=== PATIENT | female | born 1940 | race Caucasian/White ===

== ENCOUNTER 2016-12-29 20:32 | Observation (INO) | payer MEDICARE, OTHER ==
[~2016-12-29 20:32] MED LIST: ISOVUE-370 76%-LOCM 1 ML ONE
[2016-12-29 21:52] LABS: #Eosinphils 0.1 thou/uL (0.0-0.7); #Lymphocytes 1.4 thou/uL (1.20-3.40); #Monocytes 0.9 thou/uL (0.11-0.59); #Neutrophils 9.8 thou/uL (1.40-6.50); %Basophils 0.3 % (0.0-1.0); %Eosinophils 0.8 % (0.0-10.0); %Lymphocytes 11.2 % (21.0-51.0); %Monocytes 7.2 % (0.0-10.0); Hematocrit 44.1 % (36.0-47.0); Mean Platelet Volume 7.6 fL (7.4-10.4); Red Blood Cell (RBC) Count 4.45 mill/uL (4.20-5.40); White Blood Cell (WBC) Count 12.1 thou/uL (4.8-10.8)
[2016-12-29 22:16] LABS: ALT (SGPT) 29 U/L (8-55); AST (SGOT) 17 U/L (5-34); Alkaline Phosphatase 115 U/L (40-150); Anion Gap 15 mmol/L (10-20); BUN (Urea Nitrogen) 20 mg/dL (9.8-20.1); Bilirubin, Total 0.7 mg/dL (0.2-1.2); Calc. Creatinine Clearance 0 mL/min (70-130); Calcium 9.3 mg/dL (7.8-10.44); Carbon Dioxide 18 mmol/L (23-31); Chloride 106 mmol/L (98-107); Estimated GFR-MDRD 75; Globulin 2.6 g/dL (2.4-3.5); Protein, Total 6.5 g/dL (6.0-8.3)
[2016-12-29] MEDS ORDERED: Morphine 4 MG/ML VIAL ONE ×2 (22:39→23:11)
[2016-12-29] MEDS ORDERED: Ondansetron HCl/PF 4 MG/2 ML Vial ONE (22:39)
--- NOTE | 2016-12-29 23:49 | CT ---
CT ABDOMEN AND PELVIS WITH IV CONTRAST: 12/29/16 Multiple axial tomograms obtained through the abdomen and pelvis with IV enhancement. HISTORY: Left lower quadrant pain. Patient had colonoscopy earlier today. Now vomiting. FINDINGS: The lung bases are clear. There is a small sliding diaphragmatic hernia. Liver, spleen, and pancreas appear unremarkable. Adrenal glands normal. There is mild left hydronephr osis and there is mild columning of the left ureter. There is an obstructing calculus measuring appro ximately 4 mm at the left UVJ. Right urinary tract is unremarkable. Bowel loops are unremarkable. There is stool in the right colon. The left colon is contracted. There is a small umbilical hernia. IMPRESSION: 4 mm obstructing calculus at the left UVJ producing mild left hydronephrosis. POS: [facility]
[2016-12-30 01:12] LABS: Bilirubin Negative (Negative); Blood, Urine Large (Negative); Glucose, Urine (Dipstick) Negative (Negative); Ketone, Urine Trace mg/dL (Negative); Nitrite Negative (Negative); Protein, Urine (Dipstick) Negative (Neg-Trace); Urobilinogen 0.2 mg/dL (0.2-1.0)
[2016-12-30 01:14] LABS: Bacteria/HPF None Seen HPF (None Seen); Hyaline Casts/LPF 0-3 HYALINE CAST LPF (0-3 Hyaline); RBC/HPF GREATER THAN 50-TNTC HPF (0-3); Squamous Epithelial 0-3 HPF (0-3); WBC/HPF 0-3 HPF (0-3)
[2016-12-30] MEDS ORDERED: Ondansetron ODT 4 MG TAB SL PRN (01:46)
[2016-12-30] MEDS ORDERED: Ondansetron HCl/PF 4 MG/2 ML Vial IVP PRN ×2 (01:46→02:51)
[2016-12-30] MEDS ORDERED: Morphine PF 1 MG/ML SYR IVP PRN ×2 (01:46→02:54)
[2016-12-30] MEDS ORDERED: Acetaminophen 325 MG TAB PO PRN (01:46)
[2016-12-30] MEDS ORDERED: Sodium Chloride 0.9% 1,000 ML IV SCH ×3 (01:46→17:30)
[2016-12-30 02:12] VITALS: BMI 32.6
[2016-12-30] MEDS ORDERED: Docusate 100 MG CAP PO PRN (02:51)
[2016-12-30] MEDS ORDERED: Ketorolac Tromethamine 30 MG/ML VIAL IVP PRN (02:54)
[2016-12-30] MEDS ORDERED: Tamsulosin HCl 0.4 MG CAP PO SCH ×2 (02:55→09:00)
[2016-12-30] MEDS ORDERED: hydrALAZINE 20 MG/ML VIAL SLOW IVP PRN (02:57)
[2016-12-30] MEDS ORDERED: Ketorolac Tromethamine 30 MG/ML VIAL IVP SCH ×2 (03:00→17:00)
[2016-12-30] MEDS: Sodium Chloride 0.9% 1,000 ML IV SCH ×2 (03:16→09:26)
[2016-12-30] MEDS ORDERED: Ondansetron ODT 8 MG TAB SL PRN (03:17)
[2016-12-30 05:36] LABS: #Eosinphils 0.1 thou/uL (0.0-0.7); #Lymphocytes 1.6 thou/uL (1.20-3.40); #Monocytes 0.9 thou/uL (0.11-0.59); #Neutrophils 9.6 thou/uL (1.40-6.50); %Eosinophils 0.5 % (0.0-10.0); %Lymphocytes 13.5 % (21.0-51.0); %Monocytes 7.3 % (0.0-10.0); Hematocrit 37.7 % (36.0-47.0); Mean Platelet Volume 7.3 fL (7.4-10.4); Red Blood Cell (RBC) Count 3.82 mill/uL (4.20-5.40); White Blood Cell (WBC) Count 12.2 thou/uL (4.8-10.8)
[2016-12-30] MEDS ORDERED: Levothyroxine Sodium 25 MCG TAB PO SCH (06:00)
[2016-12-30] MEDS ORDERED: Levothyroxine Sodium 112 MCG TAB PO SCH (06:00)
[2016-12-30 06:01] LABS: Anion Gap 11 mmol/L (10-20); BUN (Urea Nitrogen) 13 mg/dL (9.8-20.1); Calc. Creatinine Clearance 99 mL/min (70-130); Calcium 8.1 mg/dL (7.8-10.44); Carbon Dioxide 21 mmol/L (23-31); Chloride 109 mmol/L (98-107); Estimated GFR-MDRD Greater than 90
[2016-12-30] MEDS ORDERED: Cetirizine HCl 10 MG TAB PO SCH (09:00)
[2016-12-30] MEDS ORDERED: FLU VACC TS2017-18 (>65YR) 0.5 ML SYRINGE IM ONE (09:00)
[2016-12-30] MEDS ORDERED: Famotidine/PF 20 mg/2ml Vial SLOW IVP SCH (09:00)
[2016-12-30] MEDS ORDERED: Estradiol 1 MG TAB PO SCH ×2 (09:00)
--- NOTE | 2016-12-30 09:59 | RAD ---
KUB: Date: 12-30-16 History: Evaluate contrast excretion. FINDINGS: Supine imaging limits assessment for bowel obstruction and free intraperitoneal air. There is contrast media within the urinary bladder, likely associated with the contrast administratio n for CT examination on 12-29-16. Supine limits assessment for small bowel obstruction and free intra peritoneal air. Bowel gas pattern appears nonobstructed. There is degenerative change involving bilat eral hips, right greater than left. There is diffuse degenerative change involving the spine. IMPRESSION: Contrast media is seen within the urinary bladder. Bowel gas pattern appears nonobstructed. POS: [facility]
[2016-12-30 10:20] LABS: Hemoglobin A1c 5.6 % (4.0-6.0)
[2016-12-30] MEDS ORDERED: Simethicone Chewable 80 MG TAB PO PRN (15:30)
--- NOTE | 2016-12-30 16:58 | HP-2 ---
DATE OF ADMISSION: 12/30/2016 LOCATION: [place], [place] COSIGNER: Dr. Rajni Goel. CODE STATUS: FULL. PRIMARY CARE PHYSICIAN: Dr. Gutiérrez. ATTENDING PHYSICIAN: Dr. Rajni Goel. RESIDENT PHYSICIAN: Dr. Jase Willett. History provided by the patient. CHIEF COMPLAINT: Nausea, vomiting, flank pain, and abdominal pain. HISTORY OF PRESENT ILLNESS: This is a 76-year-old female with past medical history of previous nephr olithiasis, history of colon polyps, status post colonoscopy, this morning presents for acute onset n ausea, vomiting, abdominal pain with radiation to the back, rated the pain as 10/10, without any exac erbating or remitting factors. The patient reports the pain subsided when she arrived to the ER with out use of medication to approximately 7-8/10, but then returned to a max of 10/10 pain. She denies hematuria or dysuria. Denies chest pain or shortness of breath. The patient does complain of chills and sweats; however, denies fever. ER COURSE: The patient was given 1 liter normal saline, 4 mg IV Zofran, and 4 mg IV morphine. PAST MEDICAL HISTORY: Hypothyroid, colon polyps, prior nephrolithiasis. PAST SURGICAL HISTORY: 1. Colonoscopy x3. 2. Hysterectomy. ALLERGIES: DOXYCYCLINE. MEDICATIONS: 1. Levothyroxine. 2. Estradiol. FAMILY HISTORY: Deferred. SOCIAL HISTORY: Patient nonsmoker, nondrinker. Denies drugs. REVIEW OF SYSTEMS: CONSTITUTIONAL: Patient complains of chills and night sweats. Denies fever or f atigue. ENT: Denies nasal congestion, rhinorrhea, or sore throat. Respiratory: Denies cough, sanam estion, shortness of breath. Cardiovascular: Denies chest pain, palpitations, edema. GI: Complain s of nausea, vomiting, abdominal pain. Denies diarrhea, constipation. Genitourinary: Denies dysuri a, polyuria, and hematuria. Complains of CVA tenderness and flank pain. Skin: Denies rashes. Musc uloskeletal: Complains of pain, denies swelling, arthritis, and arthralgias. Neuro: Denies weaknes s, numbness, syncope. PHYSICAL EXAMINATION: VITAL SIGNS: Blood pressure 165/60, pulse 68, respiratory rate 24, T-max 98.1, pulse ox 95% on room air, current weight 76.2 kilograms. GENERAL: Patient alert and oriented, in no acute distress, well-developed, obese, appropriately inte ractive. HEENT: Pupils equal, round, reactive to light and accommodation. Extraocular muscles intact. Conju nctivae within normal limits. NECK: Supple, without lymphadenopathy, no thyromegaly. CARDIOVASCULAR: Regular rate and rhythm. No murmurs, rubs, or gallops. Radial pulses 2+. Pedal pu lse 2+. RESPIRATORY EXAM: Normal effort, no retractions. LUNGS: Clear to auscultation bilaterally. SKIN: Warm and dry. No cyanosis. ABDOMEN: Soft, nontender. Normoactive bowel sounds in all 4 quadrants. No masses, distention or or ganomegaly. EXTREMITIES: No clubbing, cyanosis, or edema. MUSCULOSKELETAL: Structure within normal limits. Tone within normal limits. Positive CVA tendernes s on the left. NEUROLOGIC: No focal deficits. GCS 15. PSYCHIATRIC: Appropriate. LABORATORY RESULTS: White blood cells 12.1, hemoglobin 14.4, hematocrit 44.1, platelets 245. Sodium 135, potassium 3.6, chloride 106, bicarbonate 18, BUN 20, creatinine 0.75, glucose 220, calcium 9.3, AST 17, ALT 29, alkaline phosphatase 115, total bilirubin 0.7, MCV 99.1. UA showed a large amount o f blood in the urine, trace ketones, and too numerous to count RBCs, and the remainder of the UA was benign. IMAGING: CT abdomen and pelvis with contrast showed a 4-mm obstructing calculus at the ureterovesicu lar junction producing mild left hydronephrosis. ASSESSMENT AND PLAN: 1. Obstructive uropathy secondary to nephrolithiasis. The patient was given IV fluids, normal salin e 175 mL per hour. Started on Flomax 0.4 mg per day. Monitor I's and O's, urine strainer is in plac e. We will consider Urology consult in the a.m. No passage of the stone. Repeat a morning basic me tabolic panel. The patient was given Toradol, a one-time 30 mg dose, as well as morphine 2 mg q.4 ho urs as needed. 2. Leukocytosis, likely reactive. We will trend repeat a.m. CBC, urine cultures are pending. 3. Hypothyroid. Continue home medications. 4. Elevated blood pressure, no history of prior diagnosed hypertension, possibly secondary to pain. We will continue to monitor and provide hydralazine p.r.n. for systolic over 180 and diastolic over 110. 5. Prophylaxis. Sequential compression devices and Pepcid. DISPOSITION AND LENGTH OF HOSPITAL STAY: Less than or equal to 2 days. The patient is stable. Symp tomatic medications will be provided. History and physical exam as well as management was discussed with Dr. Rajni Goel who agrees w ith the above history, physical exam, assessment and plan unless otherwise noted in her addendum.
[2016-12-30] MEDS ORDERED: Senokot 8.6 MG TAB PO SCH (17:30)
--- NOTE | 2016-12-30 19:39 | CT ---
CT ABDOMEN AND PELVIS WITH IV CONTRAST: 12/30/16 Multiple axial tomograms obtained through the abdomen and pelvis with IV enhancement. Oral contrast w as also given. HISTORY: Left abdominal pain. Vomiting and diaphoresis. Comparison made to last evening CT scan performed at 10:54 p.m. that exam revealed an obstructing jorge culus within the distal left ureter. FINDINGS: Liver, spleen, pancreas remains unremarkable. There continues to be left hydronephrosis. The calculus in the distal left ureter at the UVJ is uncha nged in size and appearance. Right ureter unremarkable. Small bowel loops are of normal caliber. Colon unremarkable. No significant interval change. IMPRESSION: Obstructing calculus in the distal left ureter is unchanged in position when compared to yesterday's CT scan. POS: [facility]
--- NOTE | 2016-12-30 21:08 | CON ---
DATE OF CONSULTATION: 12/30/2016 REASON FOR CONSULTATION: Ureteral stone with pain on the left. HISTORY OF PRESENT ILLNESS: The patient is a 76-year-old female who was admitted with left-sided renal colic with nausea and vomiting and I was consulted the next day. She had standard pain somewhat of a prior stone episode with chills, but no fever, no gross hematuria noted and no concerns for infection and presented to the ER and was noted to have a distal left ureteral stone, admitted for pain control. She has not had pain since being admitted, but has not noticeably passed a stone, even though they have been looking and straining. Normally, she has frequency q.1 hour and nocturia x1 to 3. She does have urge incontinence, but denies stress incontinence requiring 1 pad a day. We reviewed overactive bladder and ways to help prevent this. PAST MEDICAL HISTORY: One prior stone which she passed on her own, borderline high cholesterol, no blood pressure issues, hypothyroid, no kidney issues from a renal function standpoint. PAST SURGICAL HISTORY: Right knee cartilage surgery. PAST PRECAST MOLDER HISTORY: She had endometriosis and required total abdominal hysterectomy with bilateral salpingo-oophorectomy, but no concerns for cancer. SOCIAL HISTORY: She has never smoked. She drinks alcohol rarely. No other drugs. MEDICATIONS: She lives with her and both she and he are doing some significant dietary changes including multiple vitamins to be healthy. MEDICATIONS: Include Synthroid, estradiol, multivitamins and other vitamin supplements as well as psyllium. ALLERGIES: DOXYCYCLINE gives ulcers in the mouth. REVIEW OF SYSTEMS: She had a colonoscopy just yesterday and was noted to have a 3 cm flat polyp in the right colon for which she needs excision as it was too large to handle endoscopically. Her mammogram is up to date from 2016. Her Pap smear was removed and no longer needed. She denies any chest pain, shortness of breath. She did have some vomiting and bloating consistent with the recent colonoscopy on top of pain with her renal colic. She normally has daily bowel movements which is why she uses the psyllium. She has no concerns for elevated blood sugars. She had a stress test 3 months ago that was within normal limits. We reviewed estradiol and how the pros and cons of that in my opinion are outweighed by her osteopenia as she does not have osteoporosis per her report. I asked her to further discuss this with her primary, also after further discussed her supplemental vitamins including extract calcium because she is already making an emphasis to getting calcium in her diet. I suspect this is a contributing factor for her stone formation, so she discussed the pros and cons of calcium supplementation with respect to both stone disease and osteoporosis further with her primary care doctor. FAMILY HISTORY: Mom at 78 of CHF. Dad at 69 of colon cancer. Her paternal aunt of breast cancer. PHYSICAL EXAMINATION: GENERAL: She is lying comfortably in the bed. VITAL SIGNS: She has been afebrile with 98.5, heart rate 55, blood pressure 124/60, 94% on room air. She is poor, overnight has been voiding otherwise without difficulty. HEENT: No JVD or scleral icterus. CARDIOVASCULAR: Regular rhythm, but bradycardia was noted. No obvious murmurs , gallops or rubs. RESPIRATORY: Lungs clear to auscultation bilaterally. ABDOMEN: Softly distended, mildly tender, but she reported this is only being ticklish. There was definitely no increased tenderness on the left, possibly more so on the right than anything. She had no costovertebral angle tenderness. EXTREMITIES: She had no lower extremity edema. SKIN: Without any concern for pallor or callor. LABORATORY DATA AND IMAGING: Laboratory values reveal stable CBC consistent with hydration. BUN and creatinine of 13 and 0.58 from a prior creatinine of 0.75. Urinalysis revealed 0-3 wbc's, too numerous to count RBCs, no bacteria and 0-[address] (12/29/2016) with contrast was reviewed personally and revealed a left where I would measure up to 7 mm x 5 mm UVJ stone with hydronephrosis and probably a small left mid renal stone as well. CT scan revealed that stone. No other right stones, no hydronephrosis on the right. No masses and a normal bladder. KUB(12/30/2016) was reviewed personally revealed there was no remaining contrast on the right or the left as there was contrast noted in the bladder. ASSESSMENT AND PLAN: We have a 76-year-old female with an obstructing left distal ureteral stone that likely already passed based on her clinical examination and the KUB that shows no further obstruction. We discussed that there is a chance that she still has her stone and it is allowing urine to pass without difficulty, so I would recommend tamsulosin for the next week or so to ensure that if she does have the stone that can increase her chance for spontaneous passage. Otherwise she is to follow up for a stone prevention with a 24 hour urinalysis and reviewed all of this in detail. All questions were answered. SANIYA
[2016-12-30 21:33] VITALS: BP 145/67; TEMP 98.6
--- NOTE | 2016-12-30 21:58 | PDOC.EVN ---
Event Note - Event Note Event Note: Reviewed CT scan results, which showed continued obstructing 4mm stone at UVJ. Discussed with Dr. Hinojosa, who recommended either stent placement verses outpatient treatment, and follow-up on Wednesday. Discussed extensively with patient the two options, with benefits and risks. Answered all patient's questions. Patient opted for outpatient treatment and follow-up on Wednesday, with Dr. Hinojosa. Counselled patient to watch for fevers, pain not improved with medication, or any other concerns, she will need to return to the emergency room for further evaluation. Will d/c patient home as vital signs have been stable, and pain controlled with medication.
--- NOTE | 2016-12-31 00:09 | HP ---
DATE OF SERVICE: 12/30/2016 CHIEF COMPLAINT: Nausea, vomiting and flank pain. HISTORY OF PRESENT ILLNESS: The patient is a 76-year-old female with a past medical history of nephr olithiasis, history of colon polyps and status post colonoscopy on 12/29/2016. The patient presented to the ER with acute onset of nausea, vomiting, abdominal pain that radiated to the back as well as flank pain. The patient was given IV fluids as well as Zofran and morphine in t ER. The patient had a CT scan which showed a 4 mm obstructing calculus at the ureterovesicular ju nction with mild left hydronephrosis. Urology has been consulted. At this morning, the patient was without pain, but notes that she has not yet passed a kidney stone. Urology was ordered. A KUB with contrast and the results of that are pending at this time. The patient's I's and O's are being lynn tored and urine stream that was present so that we can try to catch the stone if it passes. We will follow up with Urology's recommendations and pain medication is in place as needed. I have personall y reviewed and discussed the entire history, physical, assessment and plan with Dr. Willett and agree with his documentation and I repeated pertinent parts of the history and physical by myself. Please see the resident's dictation for full documentation.
[2016-12-31] MEDS ORDERED: Docusate 100 MG CAP PO SCH (09:00)
--- NOTE | 2017-01-03 08:42 | EKG ---
Test Reason : Blood Pressure : / mmHG Vent. Rate : 060 BPM Atrial Rate : 060 BPM P-R Int : 144 ms QRS Dur : 092 ms QT Int : 442 ms P-R-T Axes : 056 038 037 degrees QTc Int : 442 ms Normal sinus rhythm Normal ECG Confirmed by Soy JAIN ([id number]) on 01/03/2017 8:41:44 AM Referred By: SERENE Confirmed By:Soy JAIN
--- NOTE | 2017-01-06 06:04 | DIS-2 ---
DATE OF ADMISSION: 12/30/2016 DATE OF DISCHARGE: 12/30/2016 RESIDENT: Monica Delatorre D.O. ADMITTING ATTENDING: Dr. Rajni Goel DISCHARGE ATTENDING: Dr. Rajni Goel CONSULTATIONS: Urology, Dr. Adilene Hinojosa PROCEDURES/IMAGING: Abdomen and pelvis CT was performed and showed a 4 mm obstructing calculus at th e left UVJ junction producing mild left hydronephrosis and an abdominal x-ray which showed nonspecifi c bowel gas pattern and no obstruction. Abdomen and pelvis CT was performed which showed no other ac [place] findings other than the ones prior. EKG was done which showed normal sinus rhythm. PRIMARY DIAGNOSIS: Obstructive renal calculus. SECONDARY DIAGNOSIS: Hypothyroidism. DISCHARGE MEDICATIONS: 1. Flomax 0.4 mg p.o. daily. 2. Zyrtec 10 mg p.o. daily. 3. Levothyroxine 137 mcg p.o. daily. 4. Estradiol 0.25 mg p.o. daily. DISCONTINUED MEDICATIONS: None. HISTORY OF PRESENT ILLNESS AND HOSPITAL COURSE: The patient is a 76-year-old well female that came t o the ER with acute complaint of nausea, vomiting, abdominal pain that radiates to the back, pain was 10/10. A CT abdomen and pelvis shows an obstructing renal calculus at the UVJ junction. The patien t is placed inpatient, put on IV fluids and Flomax. Urology was consulted and recommended management conservatively, especially since the patient reporting no pain at the time of evaluation from the da y team. Of important note, the patient did have a colonoscopy performed the day prior without compli cation and had a couple of polyps removed. Patient reports little gas and crampy abdominal pain like ly secondary to increased gas in the bowel seen on CT and confirmed with x-ray. The patient did not pass stone, although had improvement of pain, likely due to adequate hydration and Flomax as well as pain medication. The patient desired to go home that evening and Urology agreed that this is an okay decision for her. DISPOSITION: Patient was discharged home in stable condition. DISCHARGE INSTRUCTIONS: 1. Location: Home. 2. Diet: Regular. 3. Activity: As tolerated. 4. Follow up with Dr. Adilene Hinojosa in 1 week and with primary care physician in 1 week. ER precauti ons were given to her return and the patient was called a day later and reported symptoms still not improved from admission, but had not yet seen a stone in passing.
== END 2016-12-30 22:50 | disposition home or self-care (01) ==
LOC: ERS 20:32 → 2SW 12-30 00:15
PROVIDERS: ADMIT Family Medicine; ATTEND Family Medicine
DX: N13.2 Hydronephrosis with renal and ureteral calculous obstruction (principal); E03.9 Hypothyroidism, unspecified; R03.0 Elevated blood-pressure reading, without diagnosis of hypertension; Z88.1 Allergy status to other antibiotic agents; Z79.818 Long term (current) use of other agents affecting estrogen receptors and estrogen levels; Z98.890 Other specified postprocedural states; Z90.710 Acquired absence of both cervix and uterus; Z87.19 Personal history of other diseases of the digestive system
CPT/HCPCS: 74000; 74177 ×2; 80048; 80053; 83036; 85025 ×2; 93005; 96361 ×2; 96374; 96375 ×2; 96376 ×2; 99285; G0378; 36415; 81003; 81015; 93010; A4216; J1885; J2270; J2274; J2405; S0028

== ENCOUNTER 2017-03-15 14:30 | Inpatient (IN) | payer MEDICARE, BC ==
[2017-03-19] MEDS ORDERED: cefOXitin 2 GM, Syringe 1 ML in Sterile Water 10 ML SLOW IVP SCH (07:45)
[2017-03-19] MEDS ORDERED: Fentanyl 100 MCG/2 ML VIAL ONE ×4 (08:04→12:48)
[2017-03-19] MEDS ORDERED: Midazolam HCl 2 mg/2 ml Vial ONE (08:04)
[2017-03-19] MEDS ORDERED: Dexamethasone 4 mg/ml Vial ONE (08:05)
[2017-03-19] MEDS ORDERED: Lidocaine 2% w/Epinephrine 1:200K 20 ML VIAL ONE (08:48)
[2017-03-19] MEDS ORDERED: Bupivacaine 0.25% HCL 30 ML VIAL ONE (08:48)
[2017-03-19] MEDS ORDERED: Ketamine 50 MG/ML VIAL ONE (08:55)
[2017-03-19] MEDS ORDERED: Promethazine HCl 25 MG/ML VIAL SLOW IVP PRN (10:24)
[2017-03-19] MEDS ORDERED: Ondansetron HCl/PF 4 MG/2 ML Vial IVP PRN ×3 (10:24→13:07)
[2017-03-19] MEDS ORDERED: Promethazine HCl 25 MG/ML VIAL IM PRN ×3 (10:24→13:07)
[2017-03-19] MEDS ORDERED: cefOXitin 2 GM VIAL ONE (11:16)
[2017-03-19] MEDS ORDERED: hydrALAZINE 20 MG/ML VIAL SLOW IVP PRN (11:55)
--- NOTE | 2017-03-19 12:31 | OP ---
PREOPERATIVE DIAGNOSIS: Carpet polyp of cecum. SURGEON: Ge Hernandez M.D. PROCEDURE PERFORMED: Laparoscopic right hemicolectomy. INDICATIONS: The patient is a 76-year-old female who had a routine colonoscopy and found a large car pet polyp in the cecum. This was not amenable to resection with the colonoscope. FINDINGS: The right colon was resected. No obvious adenopathy. PROCEDURE IN DETAIL: After informed consent was obtained, the patient was taken to the operating kahlil m and given general endotracheal anesthesia. She was placed in the supine position. The abdomen was prepped and draped in the usual fashion. Local anesthesia infiltrated subcutaneously and deep and a 5 mm incision was performed in the left lateral abdominal wall. A Veress needle inserted. Drop maldonado t performed. Pneumoperitoneum was created to a volume of 2 liters of carbon dioxide utilizing a [employer] 5 mm trocar and 0 degree laparoscope, direct visual entry in the abdominal cavity. Pneumoperit oneum was created to a pressure of 15 mmHg and under direct vision a 5 mm port placed in the left upp er quadrant and a 12 mm port placed in the left lower quadrant. The right colon was mobilized by inc ising the white line of Toldt and the ileum was freed up and the mesentery was then divided with the LigaSure, then the ileum was divided utilizing a linear white load stapler, 60 mm. The ascending col on was divided with the linear 60 mm blue load stapler. The specimen was placed in the left lower qu adrant. Then the small bowel was brought up, it was still tethered down a little bit into the pelvis . This had to be freed up and then I noticed that I had compromised the blood flow to that small bow el somewhat and there was also an injury about 6 cm from the end. So I elected to resect that portio n, so we have a clean, fresh piece of bowel. This was removed again with the stapler. Then the ileu m was brought up and an enterotomy was performed about 7 cm from the end. The antimesenteric border was cauterized then opened with a [place] dissector and then a colotomy was performed again with the cautery and the [place]. The linear 60 mm blue load stapler was used to create the anastomosis. O ne was placed in the small bowel, then brought up and inserted into the colon. It was closed and hel d for 20 seconds then fired. The common enterotomy was closed with a running 2-0 V-Loc suture transv ersally. Hemostasis was assured. The abdomen thoroughly irrigated and irrigation fluid removed. Th en the specimens were removed by enlarging the opening in the left lower quadrant with an Graham woun d protector. These were then removed from the abdomen. Pneumoperitoneum was reinstilled. Hemostasi s assured. The irrigation fluid removed. I had placed a second 12 mm port in the right lower quadra nt to aid with the anastomosis and this was closed with a 2-0 Vicryl on a GraNee needle. Hemostasis assured. Trocars and retractors removed. The fascia closed in gloves and instruments were changed. The fascia closed with a running 0 Maxon then the wound was irrigated and the subcutaneous reapproxi mated with interrupted 3-0 Vicryl and the skin closed with a running subcuticular 4-0 Rapide. Dermab ond applied. The patient tolerated the procedure well and transferred to recovery in good condition. Sponge and needle count verified correct x2.
[2017-03-19] MEDS ORDERED: diphenhydrAMINE 50 MG/ML VIAL IM PRN (13:07)
[2017-03-19] MEDS ORDERED: Fentanyl 5000 MCG/250 ML CADD IVPB PRN (13:07)
[2017-03-19] MEDS ORDERED: Naloxone HCl 0.4 mg/ml Vial IV PRN (13:07)
[2017-03-19] MEDS ORDERED: Zolpidem Tartrate 5 MG TAB PO PRN (13:07)
[2017-03-19] MEDS ORDERED: diphenhydrAMINE 25 MG CAP PO PRN (13:07)
[2017-03-19] MEDS ORDERED: diphenhydrAMINE 50 MG/ML VIAL IVP PRN (13:07)
[2017-03-19] MEDS ORDERED: Communication Order-Pharmacy FS SCH (13:15)
[2017-03-19] MEDS ORDERED: Bupivacaine PF 0.5% 30 ML VIAL ONE (13:57)
[2017-03-19] MEDS ORDERED: Bupivacaine HCl 0.5%/Epinephrine 1:200,000/PF 30 ml Vial ONE (13:57)
[2017-03-19] MEDS ORDERED: cefOXitin 2 GM in Sodium Chloride 0.9% 100 ML IVPB SCH (14:00)
[2017-03-19] MEDS ORDERED: HYDROmorphone 0.5 MG/0.5 ML SYRINGE ONE (14:08)
[2017-03-19] MEDS ORDERED: Propofol 200 MG/20 ML VIAL ONE (14:09)
[2017-03-19] MEDS ORDERED: PHENYLEPHRINE-NS 100 MCG/ML 10 ML SYRINGE ONE (14:09)
[2017-03-19] MEDS ORDERED: Lidocaine 1% PF 5 ML VIAL ONE (14:09)
[2017-03-19] MEDS ORDERED: Glycopyrrolate 0.2 MG/ML 5 ML SYRINGE ONE (14:09)
[2017-03-19] MEDS ORDERED: Ketorolac Tromethamine 30 MG/ML VIAL ONE (14:09)
[2017-03-19] MEDS ORDERED: Ondansetron HCl/PF 4 MG/2 ML Vial ONE (14:09)
[2017-03-19] MEDS ORDERED: Dexamethasone 20 MG/5 ML VIAL ONE (14:09)
[2017-03-19] MEDS ORDERED: fentaNYL Citrate/PF 2,000 MCG in Sodium Chloride 0.9% 60 ML IV PRN (14:30)
[2017-03-19 15:23] VITALS: BMI 29.3
[2017-03-19] MEDS: cefOXitin 2 GM, Syringe 1 ML in Sterile Water 10 ML SLOW IVP SCH ×2 (16:49→21:49)
[2017-03-19] MEDS: Ketorolac Tromethamine 30 MG/ML VIAL IVP SCH ×2 (16:51→18:18)
[2017-03-19] MEDS: Acetaminophen 1,000 MG in Premix Bag 1 BAG IVPB SCH ×2 (16:52→18:22)
[2017-03-19] MEDS: Sodium Chloride 0.9% 1,000 ML IV SCH ×2 (16:54→21:50)
[2017-03-19] MEDS ORDERED: FLU VACC TS2017-18 (>65YR) 0.5 ML SYRINGE IM ONE (17:00)
[2017-03-19] MEDS: Famotidine 20 MG TAB PO SCH (20:11)
[2017-03-19] MEDS: Famotidine/PF 20 mg/2ml Vial SLOW IVP SCH (21:49)
[2017-03-20] MEDS: Ketorolac Tromethamine 30 MG/ML VIAL IVP SCH ×4 (00:47→18:26)
[2017-03-20] MEDS: Acetaminophen 1,000 MG in Premix Bag 1 BAG IVPB SCH ×2 (00:47→06:50)
[2017-03-20 04:47] LABS: #Lymphocytes 0.8 thou/uL (1.20-3.40); #Monocytes 0.6 thou/uL (0.11-0.59); #Neutrophils 10.8 thou/uL (1.40-6.50); %Eosinophils 0.2 % (0.0-10.0); %Lymphocytes 6.4 % (21.0-51.0); %Monocytes 4.5 % (0.0-10.0); %Neutrophils 88.8 % (42.0-75.0); Hemoglobin 12.3 g/dL (12.0-16.0); Mean Corpuscular HGB CONC 33.2 g/dL (32.0-36.0); Mean Corpuscular Hemoglobin 33.3 pg (27.0-31.0); Platelet Count 163 thou/uL (130-400); RBC Distribution Width 12.3 % (11.5-14.5); Red Blood Cell (RBC) Count 3.69 mill/uL (4.20-5.40); White Blood Cell (WBC) Count 12.2 thou/uL (4.8-10.8)
[2017-03-20 04:51] LABS: Anion Gap 11 mmol/L (10-20); BUN (Urea Nitrogen) 13 mg/dL (9.8-20.1); Calc. Creatinine Clearance 86 mL/min (70-130); Calcium 8.4 mg/dL (7.8-10.44); Carbon Dioxide 21 mmol/L (23-31); Chloride 108 mmol/L (98-107); Estimated GFR-MDRD 87; Glucose 145 mg/dL (83-110); Sodium 136 mmol/L (136-145)
[2017-03-20] MEDS: Famotidine/PF 20 mg/2ml Vial SLOW IVP SCH ×2 (09:02→21:24)
[2017-03-20] MEDS: Famotidine 20 MG TAB PO SCH ×2 (09:08→19:54)
[2017-03-20] MEDS: Sodium Chloride 0.9% 1,000 ML IV SCH ×2 (10:32→19:46)
[2017-03-20] MEDS: Enoxaparin Sodium 40 MG/0.4 ML SYRINGE SC SCH (11:40)
[2017-03-20] MEDS ORDERED: Sodium Chloride 0.9% 500 ML IV SCH (18:45)
[2017-03-21] MEDS: Ketorolac Tromethamine 30 MG/ML VIAL IVP SCH ×4 (00:41→19:39)
[2017-03-21] MEDS: Sodium Chloride 0.9% 1,000 ML IV SCH (06:53)
[2017-03-21] MEDS ORDERED: HYDROcodone/Acetaminophen 10/325 mg Tablet PO PRN (10:41)
[2017-03-21] MEDS ORDERED: DC PCA Order Set 1 EACH FS ONE (10:41)
[2017-03-21] MEDS: Famotidine 20 MG TAB PO SCH ×2 (11:01→21:28)
[2017-03-21] MEDS: Famotidine/PF 20 mg/2ml Vial SLOW IVP SCH ×2 (11:02→20:03)
[2017-03-21] MEDS: Enoxaparin Sodium 40 MG/0.4 ML SYRINGE SC SCH (13:31)
[2017-03-21] MEDS: HYDROcodone/Acetaminophen 10/325 mg Tablet PO PRN (21:27)
[2017-03-22] MEDS: Ketorolac Tromethamine 30 MG/ML VIAL IVP SCH ×3 (00:52→06:32)
[2017-03-22] MEDS: HYDROcodone/Acetaminophen 10/325 mg Tablet PO PRN ×2 (02:43→09:08)
[2017-03-22] MEDS: Famotidine 20 MG TAB PO SCH (09:08)
[2017-03-22] MEDS: Enoxaparin Sodium 40 MG/0.4 ML SYRINGE SC SCH (09:09)
[2017-03-22] MEDS: Famotidine/PF 20 mg/2ml Vial SLOW IVP SCH (09:16)
--- NOTE | 2017-03-22 10:40 | DIS ---
DISCHARGE DIAGNOSIS: Carpet polyp of cecum. PROCEDURES DURING ADMISSION: Laparoscopic right hemicolectomy. HOSPITAL COURSE: The patient was admitted. She had undergone a mechanical bowel prep. She was take n to the operating room where she underwent a laparoscopic right hemicolectomy. Postoperatively, she is doing well. Her bowel function returned. She is tolerating diet. She is afebrile, voiding well . She is discharged home in good condition on hydrocodone and Zofran. She will follow up with me in 2 weeks.
[2017-03-22 13:16] VITALS: BP 166/82; TEMP 98.1
== END 2017-03-22 13:20 | disposition home or self-care (01) | DRG 331 ==
LOC: SURG A 03-19 06:51
PROVIDERS: ADMIT Surgery; ATTEND Surgery
PROC: 0DTF4ZZ Resection of Right Large Intestine, Percutaneous Endoscopic Approach (ICD-10-PCS; principal; 2017-03-19)
PROC: 0DB84ZZ Excision of Small Intestine, Percutaneous Endoscopic Approach (ICD-10-PCS; 2017-03-19)
PROC: 3E0T3BZ Introduction of Anesthetic Agent into Peripheral Nerves and Plexi, Percutaneous Approach (ICD-10-PCS; 2017-03-19)
PROC: 3E0T33Z Introduction of Anti-inflammatory into Peripheral Nerves and Plexi, Percutaneous Approach (ICD-10-PCS; 2017-03-19)
DX: D49.0 Neoplasm of unspecified behavior of digestive system (principal); E03.9 Hypothyroidism, unspecified; J45.909 Unspecified asthma, uncomplicated; E78.5 Hyperlipidemia, unspecified; K21.9 Gastro-esophageal reflux disease without esophagitis; G43.909 Migraine, unspecified, not intractable, without status migrainosus
CPT/HCPCS: 36415; 36416; 80048; 80053; 83036; 85025; 88307; 93005; A4216; J0131; J0670; J0694; J1100; J1170; J1650; J1885; J2001; J2250; J2405; J2704; J3010; J7050; S0020; S0028

== ENCOUNTER 2017-03-16 15:20 | Outpatient (CLI) | payer MEDICARE, BC ==
[2017-03-16 15:59] LABS: #Basophils 0.1 thou/uL (0.0-0.2); #Eosinphils 0.2 thou/uL (0.0-0.7); #Lymphocytes 1.8 thou/uL (1.20-3.40); #Monocytes 0.5 thou/uL (0.11-0.59); #Neutrophils 3.4 thou/uL (1.40-6.50); %Eosinophils 3.1 % (0.0-10.0); %Lymphocytes 30.6 % (21.0-51.0); %Monocytes 8.8 % (0.0-10.0); %Neutrophils 56.4 % (42.0-75.0); Hemoglobin 13.7 g/dL (12.0-16.0); Mean Corpuscular Hemoglobin 32.8 pg (27.0-31.0); Mean Corpuscular Volume 99.3 fl (81.0-99.0); Mean Platelet Volume 7.4 fL (7.4-10.4); Platelet Count 226 thou/uL (130-400); RBC Distribution Width 12.4 % (11.5-14.5); Red Blood Cell (RBC) Count 4.17 mill/uL (4.20-5.40)
[2017-03-16 16:05] LABS: Hemoglobin A1c 5.3 % (4.0-6.0)
[2017-03-16 16:25] LABS: ALT (SGPT) 16 U/L (8-55); AST (SGOT) 19 U/L (5-34); Albumin 4.1 g/dL (3.4-4.8); Alkaline Phosphatase 108 U/L (40-150); Anion Gap 11 mmol/L (10-20); BUN (Urea Nitrogen) 18 mg/dL (9.8-20.1); Bilirubin, Total 0.4 mg/dL (0.2-1.2); Calc. Creatinine Clearance 0 mL/min (70-130); Calcium 9.7 mg/dL (7.8-10.44); Carbon Dioxide 27 mmol/L (23-31); Chloride 107 mmol/L (98-107); Estimated GFR-MDRD 74; Globulin 2.2 g/dL (2.4-3.5); Glucose 128 mg/dL (83-110); Potassium 3.9 mmol/L (3.5-5.1); Protein, Total 6.3 g/dL (6.0-8.3); Sodium 141 mmol/L (136-145)
--- NOTE | 2017-03-17 21:22 | EKG ---
Test Reason : Blood Pressure : / mmHG Vent. Rate : 061 BPM Atrial Rate : 061 BPM P-R Int : 150 ms QRS Dur : 080 ms QT Int : 424 ms P-R-T Axes : 046 062 046 degrees QTc Int : 426 ms Normal sinus rhythm Normal ECG When compared with ECG of 30-DEC-2016 07:24, No significant change was found Confirmed by CASSIDY FRANK ([id number]) on 03/17/2017 9:21:38 PM Referred By: NARESH Confirmed By:CASSIDY FRANK
== END 2017-03-16 15:21 | disposition home or self-care (01) ==
LOC: LABBT 15:20
PROVIDERS: ATTEND Surgery
DX: Z01.810 Encounter for preprocedural cardiovascular examination (principal); Z01.812 Encounter for preprocedural laboratory examination; D12.0 Benign neoplasm of cecum
CPT/HCPCS: 80053; 83036; 85025; 93005; 93010

== ENCOUNTER 2017-04-29 16:33 | Outpatient (CLI) | payer MEDICARE, BC | END 2017-04-29 16:34 | disposition home or self-care (01) | LOC: BICRAD 16:33 | PROVIDERS: ATTEND Surgery | DX: R10.9 Unspecified abdominal pain (principal) | CPT/HCPCS: 74018 ==

== ENCOUNTER 2017-05-24 15:32 | Outpatient (CLI) | payer MEDICARE, BC | END 2017-05-24 15:33 | disposition home or self-care (01) | LOC: BICRAD 15:32 | PROVIDERS: ATTEND Family Medicine | DX: M25.511 Pain in right shoulder (principal); M19.011 Primary osteoarthritis, right shoulder ==

== ENCOUNTER 2017-07-06 09:51 | Outpatient (CLI) | payer MEDICARE, BC | END 2017-07-06 09:52 | disposition home or self-care (01) | LOC: BICRAD 09:51 | PROVIDERS: ATTEND Family Medicine | DX: M53.3 Sacrococcygeal disorders, not elsewhere classified (principal); M47.896 Other spondylosis, lumbar region; M16.0 Bilateral primary osteoarthritis of hip | CPT/HCPCS: 72100; 72220 ==

== ENCOUNTER 2017-10-29 13:45 | Outpatient (CLI) | payer MEDICARE, BC | END 2017-10-29 13:46 | disposition home or self-care (01) | LOC: BICMAMMO 13:45 | PROVIDERS: ATTEND Family Medicine | DX: Z12.31 Encounter for screening mammogram for malignant neoplasm of breast (principal); Z80.3 Family history of malignant neoplasm of breast | CPT/HCPCS: 77063; 77067 ==

== ENCOUNTER 2018-02-18 11:12 | Outpatient (CLI) | payer MEDICARE, BC ==
--- NOTE | 2018-02-18 12:46 | RAD ---
ABDOMEN TWO VIEWS: 02/18/2018 PROVIDED CLINICAL HISTORY: Constipation. FINDINGS: The visualized lung bases appear clear. The abdominal bowel gas pattern is nonspecific. Suture mate rial overlies the right mid abdomen, laterally. No radiographically apparent urinary tract calculi. The osseous structures demonstrate no acute findings. IMPRESSION: Nonspecific bowel gas pattern. POS: [facility]
== END 2018-02-18 11:13 | disposition home or self-care (01) ==
LOC: BICRAD 11:12
PROVIDERS: ATTEND Internal Medicine Gastroenterology
DX: K59.00 Constipation, unspecified (principal); R10.30 Lower abdominal pain, unspecified; Z86.010 Personal history of colon polyps; Z83.71 Family history of colonic polyps
CPT/HCPCS: 74019

== ENCOUNTER 2018-06-02 00:18 | Outpatient (CLI) | payer MEDICARE, BC ==
--- NOTE | 2018-06-02 14:02 | RAD ---
EXAM: Chest PA and lateral: HISTORY: Preoperative exam COMPARISON: None FINDINGS: Heart: Normal. Aorta: Atherosclerosis Pulmonary vessels: Normal Costophrenic angles: Costophrenic angles are clear. Lungs: No consolidation or masses. Pneumothorax: No pneumothorax Osseous structures: No osseous abnormalities IMPRESSION: No acute cardiopulmonary process. Atherosclerosis of the aorta.
[2018-06-02 14:24] LABS: #Eosinphils 0.2 thou/uL (0.0-0.7); #Monocytes 0.7 thou/uL (0.11-0.59); #Neutrophils 3.2 thou/uL (1.40-6.50); %Basophils 0.8 % (0.0-1.0); %Eosinophils 2.8 % (0.0-10.0); %Lymphocytes 32.7 % (21.0-51.0); %Neutrophils 52.7 % (42.0-75.0); Hemoglobin 13.7 g/dL (12.0-16.0); Mean Corpuscular HGB CONC 32.5 g/dL (32.0-36.0); Mean Corpuscular Hemoglobin 32.5 pg (27.0-31.0); Mean Corpuscular Volume 99.9 fL (78.0-98.0); Mean Platelet Volume 7.3 fL (7.4-10.4); Platelet Count 258 thou/uL (130-400); RBC Distribution Width 11.9 % (11.5-14.5); Red Blood Cell (RBC) Count 4.22 mill/uL (4.20-5.40)
[2018-06-02 14:32] LABS: INR-International Normal Ratio 1.3
[2018-06-02 14:41] LABS: Anion Gap 14 mmol/L (10-20); BUN (Urea Nitrogen) 20 mg/dL (9.8-20.1); Calc. Creatinine Clearance 0 mL/min (70-130); Calcium 9.6 mg/dL (7.8-10.44); Carbon Dioxide 22 mmol/L (23-31); Chloride 107 mmol/L (98-107); Estimated GFR-MDRD 86; Glucose 77 mg/dL (83-110); Potassium 3.9 mmol/L (3.5-5.1); Sodium 139 mmol/L (136-145)
--- NOTE | 2018-06-03 07:26 | EKG ---
Test Reason : Blood Pressure : / mmHG Vent. Rate : 044 BPM Atrial Rate : 044 BPM P-R Int : 158 ms QRS Dur : 082 ms QT Int : 470 ms P-R-T Axes : 063 055 047 degrees QTc Int : 401 ms Marked sinus bradycardia Anterior infarct , age undetermined Abnormal ECG When compared with ECG of 16-MAR-2017 15:45, No significant change was found Confirmed by CASSIDY FRANK ([id number]) on 06/03/2018 7:26:00 AM Referred By: DERIK Confirmed By:CASSIDY FRANK
== END 2018-06-02 00:19 | disposition home or self-care (01) ==
LOC: LABBT 00:18
PROVIDERS: ATTEND Orthopaedic Surgery
DX: Z01.818 Encounter for other preprocedural examination (principal); M16.11 Unilateral primary osteoarthritis, right hip; I70.0 Atherosclerosis of aorta
CPT/HCPCS: 71046; 80048; 85025; 85610; 87081; 93005; 93010

== ENCOUNTER 2018-06-02 13:30 | Inpatient (IN) | payer MEDICARE, BC ==
[2018-06-14] MEDS ORDERED: Tranexamic Acid 1,000 MG/10 ML VIAL ONE (07:16)
[2018-06-14] MEDS ORDERED: Sodium Chloride 0.9% 100 ML ONE (07:16)
[2018-06-14] MEDS ORDERED: Midazolam HCl 2 mg/2 ml Vial ONE (07:27)
[2018-06-14] MEDS ORDERED: Fentanyl 100 MCG/2 ML VIAL ONE ×3 (07:27→10:55)
[2018-06-14] MEDS ORDERED: Zolpidem Tartrate 5 MG TAB PO PRN ×2 (08:15→08:58)
[2018-06-14] MEDS ORDERED: diphenhydrAMINE 50 MG/ML VIAL IM PRN (08:15)
[2018-06-14] MEDS ORDERED: Promethazine HCl 25 MG/ML VIAL IM PRN ×3 (08:15→10:31)
[2018-06-14] MEDS ORDERED: Naloxone HCl 0.4 mg/ml Vial IV PRN (08:15)
[2018-06-14] MEDS ORDERED: Fentanyl 5 mcg/Bup 0.075% Cadd 100 ML EPIDURAL SCH (08:15)
[2018-06-14] MEDS ORDERED: HYDROcodone/Acetaminophen 5/325 mg Tablet PO PRN ×2 (08:15→09:18)
[2018-06-14] MEDS ORDERED: Naloxone HCl 0.4 mg/ml Vial IVP PRN (08:15)
[2018-06-14] MEDS ORDERED: Ondansetron PF 4 MG/2 ML Vial IVP PRN ×2 (08:15→08:58)
[2018-06-14] MEDS ORDERED: Hydrocerin (Eucerin) Cream 120 gm Jar TOP PRN (08:15)
[2018-06-14] MEDS ORDERED: diphenhydrAMINE 50 MG/ML VIAL IVP PRN (08:15)
[2018-06-14] MEDS ORDERED: Promethazine HCl 25 MG SUPP PR PRN (08:15)
[2018-06-14] MEDS ORDERED: traMADol HCl 50 MG TAB PO PRN ×3 (08:15→09:18)
[2018-06-14] MEDS ORDERED: Bupivacaine 0.25% 10 ML VIAL EPIDURAL PRN (08:15)
[2018-06-14] MEDS ORDERED: diphenhydrAMINE 25 MG CAP PO PRN ×2 (08:15→08:58)
[2018-06-14] MEDS ORDERED: Phenylephrine HCL 10 MG/ML VIAL ONE (08:43)
[2018-06-14] MEDS ORDERED: Lidocaine 2% Jelly 5 ML TUBE ONE (08:43)
[2018-06-14] MEDS ORDERED: Ropivacaine 0.2% HCl/PF 20 ML ONE (08:47)
[2018-06-14] MEDS ORDERED: Fentanyl 100 MCG/2 ML VIAL SLOW IVP PRN (08:58)
[2018-06-14] MEDS ORDERED: HYDROcodone/Acetaminophen 10/325 mg Tablet PO PRN ×2 (08:58)
[2018-06-14] MEDS ORDERED: Acetaminophen 325 MG TAB PO PRN (08:58)
[2018-06-14] MEDS ORDERED: Estradiol 1 MG TAB PO SCH (09:00)
[2018-06-14] MEDS ORDERED: Promethazine HCl 25 MG/ML VIAL SLOW IVP PRN (10:31)
[2018-06-14] MEDS ORDERED: Ondansetron HCl/PF 4 MG/2 ML Vial IVP PRN (10:31)
--- NOTE | 2018-06-14 10:44 | OP ---
DATE OF PROCEDURE: 06/14/2018 PREOPERATIVE DIAGNOSIS: Degenerative joint disease of the right hip. POSTOPERATIVE DIAGNOSIS: Degenerative joint disease of the right hip. PROCEDURES PERFORMED: Right total hip arthroplasty using a Sylvester Accolade 2 stem with a -2.5 head, 36 mm liner and a 50 mm PSL cup. SUPERINTENDENT MENAGERIE: Ricky. BLOOD LOSS: 100. SPECIMEN: None. DRAIN: None. COMPLICATION: None. PROCEDURE IN DETAIL: After informed consent was obtained in the preoperative holding area, the patient was taken to the operative suite where general anesthesia was induced. The patient was then positioned in the lateral decubitus position. The hip was then prepped and draped in usual sterile fashion. The patient received preoperative antibiotics. Prior to incision, time-out was called and all members of the surgical team agreed upon site, surgeon, and patient. After this, a longitudinal incision was made directly over the trochanter, noted by palpation extending 2 fingerbreadths above and below the trochanter. The deeper subcutaneous layer was undermined with Bovie electrocautery. The iliotibial band was encountered and incised sharply and the plane below this was developed bluntly. A Charnley retractor was placed to hold this opened. The lateral aspect of the trochanter and the abductor muscles were encountered and then reflected anteriorly off the trochanter using Bovie electrocautery. Once this was completed, the anterior capsule was then encountered and identified and copious capsulotomy was carried out, exposing the femoral neck and head. Dislocation maneuver was then performed and an in situ provisional neck cut was then made using the oscillating saw. Attention was then turned to acetabular preparation and sequential reaming was carried out up to the appropriate diameter. A trial was then malleted into place with good firm resistance and no pullout. The permanent acetabular shell was then malleted squarely into place, as was the appropriate liner. Once completed, the wound was copiously irrigated and attention was then turned to femoral preparation. Flexion and external rotation were performed of the exposed thigh and femoral elevators were then placed at the proximal aspect of the wound. Canal finder was used to establish the length of the canal and sequential reaming was carried out, followed by broaching. Once the appropriate stability was established with the trial broaches with flexion, extension and rotational stability, we did trial with neutral and 2 mm offset incremental necks. Once the appropriate size was decided upon, with good stability noted with flexion, extension, internal and external rotation and shuck being negative, we removed the femoral trial broach and malleted into place the permanent prosthesis with good firm fit, which was also stable to rotation. Again, the hip felt very stable to flexion, extension, internal and external rotation. Leg lengths appeared near anatomic clinically and we were quite happy with prosthesis placement. Copious irrigation was then carried out through the entirety of the wound. Primary closure of the abductors was accomplished with interrupted #2 Vicryl fwcyeg-ey-dduus stitches and the IT band was then closed with interrupted #2 Vicryl, oversewn with a #2 running barbed Quill stitch. Subcutaneous fascia was closed with running barbed Quill stitch and a subcuticular Monocryl barbed Quill stitch was used for skin closure and augmented with skin cement. A sterile dressing was applied. The procedure was terminated without any complication. All counts were correct. The patient was awakened in the operative suite and taken to the recovery room in stable condition. Job ID: [id number]
[2018-06-14] MEDS ORDERED: Bupivacaine 0.25% HCL 30 ML VIAL ONE (10:46)
--- NOTE | 2018-06-14 10:53 | RAD ---
XR Hip Rt 2-3 View HISTORY: Postop COMPARISON: None. FINDINGS: There is been placement of a right hip prosthesis which is in good position. No evidence of fracture. IMPRESSION: Placement of a right hip prosthesis.
[2018-06-14] MEDS ORDERED: Ketorolac Tromethamine 30 MG/ML VIAL ONE (11:05)
[2018-06-14] MEDS ORDERED: Acetaminophen 1,000 MG in Premix Bag 1 BAG IVPB SCH (11:15)
[2018-06-14] MEDS ORDERED: Ketorolac Tromethamine 30 MG/ML VIAL IVP SCH (11:15)
[2018-06-14] MEDS: Aspirin 81 mg Enteric Coated Tablet PO SCH ×2 (11:49→21:34)
[2018-06-14] MEDS: Zinc Sulfate 220 MG CAP PO SCH (11:50)
[2018-06-14] MEDS: Ketorolac Tromethamine 30 MG/ML VIAL IVP SCH ×3 (12:33→23:23)
[2018-06-14] MEDS: Sodium Chloride 0.9% 1,000 ML IV SCH ×2 (12:54→19:45)
[2018-06-14] MEDS: CEFAZOLIN 2 GM in Premix Bag 1 BAG IVPB SCH ×2 (14:10→23:24)
[2018-06-14] MEDS: traMADol HCl 50 MG TAB PO PRN ×2 (14:15→21:33)
[2018-06-14] MEDS ORDERED: Dexamethasone 20 MG/5 ML VIAL ONE (15:10)
[2018-06-14] MEDS ORDERED: PROPOFOL 200 MG/20 ML VIAL ONE (15:10)
[2018-06-14] MEDS ORDERED: Glycopyrrolate 0.2 MG/ML 5 ML SYRINGE ONE (15:10)
[2018-06-14] MEDS ORDERED: Rocuronium Bromide 10 MG/ML (10ML VIAL) ONE (15:10)
[2018-06-14] MEDS ORDERED: Ondansetron PF 4 MG/2 ML Vial ONE (15:10)
[2018-06-14] MEDS ORDERED: ePHEDrine 50 MG/ML VIAL ONE (15:10)
--- NOTE | 2018-06-14 20:46 | CON ---
DATE OF CONSULTATION: CONSULTING PROVIDER: Samson Valenzuela MD REASON FOR CONSULTATION: Medical management. HISTORY OF PRESENT ILLNESS: The patient is an 78-year-old female, patient of Dr. Mackenzie Gutiérrez who presents for outpatient elective right hip arthroplasty. She reports a past medical history of hyperlipidemia which is diet controlled and hypothyroidism for which she takes 137 mcg of Synthroid daily. Additionally, the patient notes that she takes estradiol for osteoporosis prevention as prescribed by Dr. Gutiérrez. Otherwise, she has no complaints. She is resting comfortably in bed and is a couple of hours postop and reports that her pain is currently well controlled. She denies chest pain, shortness of breath, nausea, vomiting, diarrhea, or constipation. Currently pain-free. Moving all extremities. REVIEW OF SYSTEMS: GENERAL: The patient denies fever, chills. HEENT: The patient denies congestion, rhinorrhea. CARDIOVASCULAR: Denies chest pain, palpitations. RESPIRATORY: Denies cough, congestion, shortness of breath. ABDOMEN: Denies nausea, vomiting, diarrhea, or constipation. Denies abdominal pain. MUSCULOSKELETAL: The patient currently denies any joint pain. NEURO: The patient denies numbness, tingling. PHYSICAL EXAMINATION: GENERAL: The patient in no acute distress, resting comfortably in bed. HEENT: Normocephalic, atraumatic. No JVD. CARDIOVASCULAR: Heart is regular rate and rhythm. No murmurs, rubs, or gallops. Peripheral pulses are intact. RESPIRATORY: Lungs are clear to auscultation bilaterally without wheezing, rales, or rhonchi. Normal respiratory effort. ABDOMEN: Soft, nontender, nondistended. Normoactive bowel sounds in all four quadrants. NEURO: No focal deficit. Moving all extremities. MUSCULOSKELETAL: The patient is status post right hip arthroplasty. She is currently moving all extremities and denies any pain at this time. Her peripheral lower extremity pulses are intact. ASSESSMENT/PLAN: 1. Status post right hip arthroplasty. Managed per Orthopedic Surgery. 2. Hypothyroidism. We will resume current home medications. If the patient continues to be bradycardic, we will recheck TSH. 3. Current estrogen use. We will hold estrogen while the patient remains in the hospital given possible thrombogenic side effects. Thank you for this consultation. We will continue to follow while the patient remains in the hospital. Job ID: [id number] I saw and valuated the patient on the date of consultation. I agree with the History, Physical, Assessment and Plan as documented. SANIYA
[2018-06-14] MEDS: Bupivacaine 10 ML in Sodium Chloride 0.9% 90 ML EPIDURAL SCH (23:24)
[2018-06-15 05:15] LABS: Hemoglobin 10.9 g/dL (12.0-16.0); Mean Corpuscular HGB CONC 32.4 g/dL (32.0-36.0); Mean Corpuscular Hemoglobin 32.5 pg (27.0-31.0); Mean Platelet Volume 7.4 fL (7.4-10.4); Platelet Count 192 thou/uL (130-400); RBC Distribution Width 11.9 % (11.5-14.5); Red Blood Cell (RBC) Count 3.33 mill/uL (4.20-5.40); White Blood Cell (WBC) Count 12.4 thou/uL (4.8-10.8)
[2018-06-15] MEDS: Levothyroxine Sodium 25 MCG TAB PO SCH (05:27)
[2018-06-15] MEDS: Levothyroxine Sodium 112 MCG TAB PO SCH (05:27)
[2018-06-15] MEDS: Ketorolac Tromethamine 30 MG/ML VIAL IVP SCH ×4 (05:28→23:45)
[2018-06-15] MEDS: Sodium Chloride 0.9% 1,000 ML IV SCH ×2 (06:33→14:37)
[2018-06-15 08:31] LABS: Anion Gap 12 mmol/L (10-20); BUN (Urea Nitrogen) 27 mg/dL (9.8-20.1); Calc. Creatinine Clearance 69 mL/min (70-130); Carbon Dioxide 21 mmol/L (23-31); Chloride 108 mmol/L (98-107); Estimated GFR-MDRD 76; Glucose 129 mg/dL (83-110); Potassium 4.3 mmol/L (3.5-5.1); Sodium 137 mmol/L (136-145)
[2018-06-15] MEDS: Senokot S 8.6-50 MG TAB PO SCH ×2 (08:35→19:56)
[2018-06-15] MEDS: Multivitamin W/ Minerals 1 TAB PO SCH (08:35)
[2018-06-15] MEDS: Zinc Sulfate 220 MG CAP PO SCH (08:35)
[2018-06-15] MEDS: Ferrous Gluconate 324 MG TAB PO SCH ×2 (08:36→18:05)
[2018-06-15] MEDS: Aspirin 81 mg Enteric Coated Tablet PO SCH ×2 (08:36→19:56)
[2018-06-15] MEDS: traMADol HCl 50 MG TAB PO PRN ×3 (08:37→18:06)
[2018-06-15] MEDS ORDERED: Loratadine 10 MG TAB PO PRN (10:15)
--- NOTE | 2018-06-15 10:46 | PDOC.FM ---
- Subjective Subjective: AVIS overnight. Pt resting comfortably in bed. Pain well controlled. - Objective Vital Signs & Weight: Vital Signs (12 hours) Temp Pulse Resp BP Pulse Ox 06/15/18 08:29 98.2 F 62 16 99/64 96 06/15/18 05:00 98.5 F 69 18 106/59 L 95 06/15/18 00:48 98.4 F 69 20 97/57 L 94 L Weight Weight 72.121 kg I&O: 06/14/18 06/15/18 06/16/18 06:59 06:59 06:59 Intake Total 3260 Output Total 1400 Balance 1860 Result Diagrams: 06/16/18 04:38 06/16/18 04:38 Phys Exam - Physical Examination Constitutional: NAD HEENT: PERRLA, sclera anicteric Neck: no nodes, no JVD Respiratory: no wheezing, no rales, no rhonchi, clear to auscultation bilateral Cardiovascular: RRR, no significant murmur, no rub Gastrointestinal: soft, non-tender, no distention, positive bowel sounds Musculoskeletal: no edema, pulses present Neurological: non-focal, moves all 4 limbs Skin: no rash Dx/Plan (1) Hypothyroid Code(s): E03.9 - HYPOTHYROIDISM, UNSPECIFIED Status: Acute - Plan Plan: 1) Hypothyroidism - cont home levothyroxine - VSS 2) Previous estrogen use - hold s/p arthroplasty of hip - pt encouraged to discuss risk benefit with PCP on discharge Addendum - Attending - Attending Attestation Date/Time: 06/16/18 [id number] I personally evaluated the patient and discussed the management with Dr. Willett. I agree with the History, Examination, Assessment and Plan documented above with any addition or exceptions noted below.
[2018-06-15] MEDS: Bupivacaine 10 ML in Sodium Chloride 0.9% 90 ML EPIDURAL SCH (12:25)
[2018-06-16] MEDS: Bupivacaine 10 ML in Sodium Chloride 0.9% 90 ML EPIDURAL SCH (00:52)
[2018-06-16] MEDS: Sodium Chloride 0.9% 1,000 ML IV SCH ×2 (02:23→11:28)
[2018-06-16 05:26] LABS: Hemoglobin 10.2 g/dL (12.0-16.0); Mean Corpuscular HGB CONC 32.8 g/dL (32.0-36.0); Mean Corpuscular Hemoglobin 33.4 pg (27.0-31.0); Mean Platelet Volume 7.7 fL (7.4-10.4); Platelet Count 161 thou/uL (130-400); RBC Distribution Width 12.1 % (11.5-14.5); Red Blood Cell (RBC) Count 3.07 mill/uL (4.20-5.40); White Blood Cell (WBC) Count 8.6 thou/uL (4.8-10.8)
[2018-06-16 05:44] LABS: Anion Gap 10 mmol/L (10-20); BUN (Urea Nitrogen) 20 mg/dL (9.8-20.1); Calc. Creatinine Clearance 87 mL/min (70-130); Calcium 8.8 mg/dL (7.8-10.44); Carbon Dioxide 21 mmol/L (23-31); Chloride 109 mmol/L (98-107); Estimated GFR-MDRD Greater than 90; Glucose 125 mg/dL (83-110); Potassium 4.3 mmol/L (3.5-5.1); Sodium 136 mmol/L (136-145)
[2018-06-16] MEDS: Ketorolac Tromethamine 30 MG/ML VIAL IVP SCH (06:04)
[2018-06-16] MEDS: Levothyroxine Sodium 112 MCG TAB PO SCH (06:05)
[2018-06-16] MEDS: Levothyroxine Sodium 25 MCG TAB PO SCH (06:05)
[2018-06-16 08:03] VITALS: TEMP 98.4
[2018-06-16] MEDS: Ferrous Gluconate 324 MG TAB PO SCH (08:57)
[2018-06-16] MEDS: Zinc Sulfate 220 MG CAP PO SCH (08:57)
[2018-06-16] MEDS: Senokot S 8.6-50 MG TAB PO SCH (08:57)
[2018-06-16] MEDS: Multivitamin W/ Minerals 1 TAB PO SCH (08:58)
[2018-06-16] MEDS: Aspirin 81 mg Enteric Coated Tablet PO SCH (09:04)
--- NOTE | 2018-06-16 10:41 | PDOC.EVN ---
Event Note - Event Note Event Note: AVIS overnight. Pt is planning for DC to home this am. Will sign off. Pt instructed to f/u with pcp regarding continued estradiol use. Cont synthroid.
[2018-06-16 12:11] VITALS: BP 130/82
== END 2018-06-16 14:53 | disposition home or self-care (01) | DRG 470 ==
LOC: SJJU 06-14 06:16
PROVIDERS: ADMIT Orthopaedic Surgery; ATTEND Orthopaedic Surgery
PROC: 0SR90JZ Replacement of Right Hip Joint with Synthetic Substitute, Open Approach (ICD-10-PCS; principal; 2018-06-14)
DX: M16.11 Unilateral primary osteoarthritis, right hip (principal); E78.5 Hyperlipidemia, unspecified; E03.9 Hypothyroidism, unspecified; Z79.818 Long term (current) use of other agents affecting estrogen receptors and estrogen levels; Z88.1 Allergy status to other antibiotic agents; Z90.710 Acquired absence of both cervix and uterus
CPT/HCPCS: 36415; 80048; 85027; 86850; 86900; 86901; J0131; J0690; J1100; J1885; J2250; J2370; J2405; J2704; J2795; J3010; J3370; J3490; S0020

== ENCOUNTER 2018-11-01 14:13 | Outpatient (CLI) | payer MEDICARE, BC ==
--- NOTE | 2018-11-01 16:24 | MMO ---
Bilateral MAMMO Bilat Screen [facility]. CLINICAL HISTORY: Patient is 78 years old and is seen for screening. The patient has the following family history of breast cancer: sister, malignant (generic), TWICE. The patient has a history of right Excisional Biopsy more than 10 years ago - benign. VIEWS: The views performed were: bilateral craniocaudal with tomosynthesis and bilateral mediolateral oblique with tomosynthesis. FILMS COMPARED: The present examination has been compared to prior imaging studies performed at [facility] on 10/24/2015, 10/27/2016 and 10/29/2017, and at [facility] on 10/26/2014. This study has been interpreted with the assistance of computer-aided detection. MAMMOGRAM FINDINGS: There are scattered fibroglandular densities. There are stable benign appearing calcifications seen in both breasts. There are no suspicious masses, suspicious calcifications, or new areas of architectural distortion. IMPRESSION: THERE IS NO MAMMOGRAPHIC EVIDENCE OF MALIGNANCY. A ROUTINE FOLLOW-UP MAMMOGRAM IN 1 YEAR IS RECOMMENDED. THE RESULTS OF THIS EXAM WERE SENT TO THE PATIENT. ACR BI-RADS Category 2 - Benign finding MAMMOGRAPHY NOTE: 1. A negative mammogram report should not delay a biopsy if a dominant of clinically suspicious mass is present. 2. Approximately 10% to 15% of breast cancers are not detected by mammography. 3. Adenosis and dense breasts may obscure an underlying neoplasm. Reported by: LILY RODRIGUEZ MD Electonically Signed: [id number]
== END 2018-11-01 14:14 | disposition home or self-care (01) ==
LOC: BICMAMMO 14:13
PROVIDERS: ATTEND Family Medicine
DX: Z12.31 Encounter for screening mammogram for malignant neoplasm of breast (principal); Z80.3 Family history of malignant neoplasm of breast; Z91.89 Other specified personal risk factors, not elsewhere classified
CPT/HCPCS: 77063; 77067

== ENCOUNTER 2019-05-31 11:56 | Outpatient (CLI) | payer MEDICARE, BC ==
--- NOTE | 2019-05-31 13:09 | RAD ---
LEFT HIP 2 VIEWS: Date: 05/31/2019 HISTORY: Left hip pain. FINDINGS/IMPRESSION: Degenerative changes are present. No acute fracture, dislocation, or bony destruction identified. POS: VANDANA
== END 2019-05-31 11:57 | disposition home or self-care (01) ==
LOC: SCSRAD 11:56
PROVIDERS: ATTEND Family Medicine
DX: M25.552 Pain in left hip (principal); M16.12 Unilateral primary osteoarthritis, left hip

== ENCOUNTER 2019-06-06 14:29 | Outpatient (CLI) | payer MEDICARE, BC ==
--- NOTE | 2019-06-06 16:21 | ULT ---
LEFT LOWER EXTREMITY ARTERIAL DOPPLER: 06/06/19 PROVIDED CLINICAL HISTORY: Left leg pain. FINDINGS: Weber scale and color Doppler sonography with spectral analysis was preformed of the left common femor al, superficial femoral, profunda femoral, popliteal, anterior tibial, posterior tibial, and dorsalis pedis arteries. No significant atherosclerotic plaque is identified. Triphasic waveforms are seen within the common f emoral and superficial femoral arteries with biphasic waveforms seen within the profunda femoral davi ry. Triphasic waveform is seen within the popliteal artery, with biphasic waveforms seen within the a nterior tibial, posterior tibial, and dorsalis pedis arteries. Mildly increased velocities within the anterior tibial and dorsalis pedis arteries may reflect runoff disease. IMPRESSION: No significant lower extremity arterial vascular disease is evident. POS: UNRULY
== END 2019-06-06 14:30 | disposition home or self-care (01) ==
LOC: BICULT 14:29
PROVIDERS: ATTEND Family Medicine
DX: M25.552 Pain in left hip (principal)
CPT/HCPCS: 93923

== ENCOUNTER 2020-04-26 12:02 | Outpatient (CLI) | payer MEDICARE, BC | END 2020-04-26 12:03 | disposition home or self-care (01) | LOC: BICMAMMO 12:02 | PROVIDERS: ATTEND Family Medicine | DX: Z12.31 Encounter for screening mammogram for malignant neoplasm of breast (principal); Z91.89 Other specified personal risk factors, not elsewhere classified; Z80.3 Family history of malignant neoplasm of breast | CPT/HCPCS: 77063; 77067 ==

== ENCOUNTER 2020-07-19 09:18 | Outpatient (CLI) | payer MEDICARE, BC | END 2020-07-19 09:19 | disposition home or self-care (01) | LOC: BICMAMMO 09:18 | PROVIDERS: ATTEND Family Medicine | DX: Z13.820 Encounter for screening for osteoporosis (principal); Z78.0 Asymptomatic menopausal state; M85.89 Other specified disorders of bone density and structure, multiple sites | CPT/HCPCS: 77080 ==

== ENCOUNTER 2020-08-15 00:06 | Emergency (ER) | payer MEDICARE, BC ==
[2020-08-15 00:41] LABS: #Basophils 0.1 thou/uL (0.0-0.2); #Eosinphils 0.2 thou/uL (0.0-0.7); #Lymphocytes 1.7 thou/uL (1.20-3.40); #Monocytes 0.6 thou/uL (0.11-0.59); #Neutrophils 4.5 thou/uL (1.40-6.50); %Basophils 0.7 % (0.0-1.0); %Eosinophils 2.8 % (0.0-10.0); %Lymphocytes 24.1 % (21.0-51.0); %Monocytes 8.6 % (0.0-10.0); %Neutrophils 63.9 % (42.0-75.0); Hemoglobin 13.1 g/dL (12.0-16.0); Mean Corpuscular HGB CONC 34.9 g/dL (32.0-36.0); Mean Corpuscular Hemoglobin 34.5 pg (27.0-31.0); Mean Corpuscular Volume 98.9 fL (78.0-98.0); Mean Platelet Volume 7.3 fL (7.4-10.4); Platelet Count 201 thou/uL (130-400); RBC Distribution Width 12.2 % (11.5-14.5); Red Blood Cell (RBC) Count 3.79 mill/uL (4.20-5.40); White Blood Cell (WBC) Count 7.1 thou/uL (4.8-10.8)
[2020-08-15 00:42] LABS: Bacteria/HPF None Seen HPF (None Seen); Bilirubin Negative (Negative); Blood, Urine 1+ (Negative); Clarity Clear (Clear); Glucose, Urine (Dipstick) Normal (Negative); Ketone, Urine Negative (Negative); Leukocyte 250 Leu/uL (Negative); Nitrite Negative (Negative); Protein, Urine (Dipstick) Negative (Neg-Trace); RBC/HPF 0-3 HPF (0-3); Specific Gravity, Urine 1.021 (1.002-1.036); Squamous Epithelial 0-3 HPF (0-3); Urobilinogen Normal mg/dL (Less than 2)
[2020-08-15 00:54] LABS: ALT (SGPT) 15 U/L (8-55); AST (SGOT) 19 U/L (5-34); Albumin 3.8 g/dL (3.4-4.8); Alkaline Phosphatase 110 U/L (40-110); Anion Gap 15 mmol/L (10-20); BUN (Urea Nitrogen) 23 mg/dL (9.8-20.1); Bilirubin, Total 0.4 mg/dL (0.2-1.2); Calc. Creatinine Clearance 0 mL/min (70-130); Calcium 9.5 mg/dL (7.8-10.44); Carbon Dioxide 19 mmol/L (23-31); Chloride 110 mmol/L (98-107); Globulin 2.7 g/dL (2.4-3.5); Glucose 121 mg/dL (83-110); Potassium 3.9 mmol/L (3.5-5.1); Protein, Total 6.5 g/dL (5.8-8.1); Sodium 140 mmol/L (136-145)
== END 2020-08-15 02:59 | disposition home or self-care (01) ==
LOC: ERS 00:06
DX: N30.00 Acute cystitis without hematuria (principal); E78.5 Hyperlipidemia, unspecified; I12.0 Hypertensive chronic kidney disease with stage 5 chronic kidney disease or end stage renal disease; N18.6 End stage renal disease
CPT/HCPCS: 36415; 51701; 74177; 80053; 81003; 81015; 85025; 87086

== ENCOUNTER 2021-12-24 15:10 | Outpatient (CLI) | payer MEDICARE, OTHER | END 2021-12-24 15:11 | disposition home or self-care (01) | LOC: SCSRAD 15:10 | PROVIDERS: ATTEND Family Medicine | DX: R10.11 Right upper quadrant pain (principal) ==

== ENCOUNTER 2022-02-11 07:56 | Outpatient (CLI) | payer MEDICARE | END 2022-02-11 07:57 | disposition home or self-care (01) | LOC: ULT 07:56 | PROVIDERS: ATTEND Family Medicine | DX: R10.11 Right upper quadrant pain (principal); K76.0 Fatty (change of) liver, not elsewhere classified | CPT/HCPCS: 76705 ==

== ENCOUNTER 2023-07-24 10:16 | Emergency (ER) | payer MEDICARE ==
[2023-07-24] MEDS ORDERED: Fluorescein Opthalmic Strip ONE (10:57)
[2023-07-24] MEDS ORDERED: Ibuprofen 200 MG TAB ONE (11:24)
== END 2023-07-24 11:33 | disposition home or self-care (01) ==
LOC: ERS 10:16
DX: S05.02XA Injury of conjunctiva and corneal abrasion without foreign body, left eye, initial encounter (principal); I95.9 Hypotension, unspecified; E78.5 Hyperlipidemia, unspecified; X58.XXXA Exposure to other specified factors, initial encounter; Y93.H2 Activity, gardening and landscaping; Z55.0 Illiteracy and low-level literacy
CPT/HCPCS: 99282

== ENCOUNTER 2023-11-21 07:38 | Emergency (ER) | payer MEDICARE ==
[2023-11-21 08:33] LABS: #Basophils 0.05 10x3/uL (0.0-0.2); %Eosinophils 4.7 % (0.0-10.0); %Lymphocytes 29.2 % (21.0-51.0); %Monocytes 9.8 % (0.0-10.0); %Neutrophils 54.9 % (42.0-75.0); Hematocrit 39.8 % (36.0-47.0); Hemoglobin 13.3 g/dL (12.0-16.0); Mean Corpuscular HGB CONC 33.4 g/dL (32.0-36.0); Mean Corpuscular Hemoglobin 32.6 pg (27.0-31.0); Mean Corpuscular Volume 97.5 fL (78.0-98.0); Mean Platelet Volume 9.6 fL (7.4-10.4); Platelet Count 208 10x3/uL (130-400); RBC Distribution Width 13.5 % (11.5-14.5); Red Blood Cell (RBC) Count 4.08 mill/uL (4.20-5.40)
[2023-11-21 08:47] LABS: INR-International Normal Ratio 1.3; PTT 30.6 sec (22.9-36.1)
[2023-11-21] MEDS ORDERED: Meclizine HCl 25 MG TAB ONE (08:57)
[2023-11-21 09:03] LABS: Troponin I Less than 0.010 ng/mL (< 0.028)
[2023-11-21 09:04] LABS: ALT (SGPT) 19 U/L (8-55); AST (SGOT) 32 U/L (5-34); Albumin 3.8 g/dL (3.4-4.8); Alkaline Phosphatase 91 U/L (40-110); Anion Gap 14 mmol/L (10-20); BUN (Urea Nitrogen) 18 mg/dL (9.8-20.1); Bilirubin, Total 0.7 mg/dL (0.2-1.2); Calc. Creatinine Clearance 0 mL/min (70-130); Calcium 9.2 mg/dL (7.8-10.44); Carbon Dioxide 22 mmol/L (23-31); Chloride 109 mmol/L (98-107); Estimated GFR 76; Globulin 3.4 g/dL (2.4-3.5); Glucose 102 mg/dL (83-110); Potassium 4.8 mmol/L (3.5-5.1); Protein, Total 7.2 g/dL (5.8-8.1); Sodium 140 mmol/L (136-145)
[2023-11-21] MEDS ORDERED: Aspirin Chewable 81 MG TAB ONE (09:51)
== END 2023-11-21 09:52 | disposition home or self-care (01) ==
LOC: ERS 07:38
DX: R42 Dizziness and giddiness (principal); I10 Essential (primary) hypertension; E03.9 Hypothyroidism, unspecified
CPT/HCPCS: 36416; 70450; 80053; 84484; 85025; 85610; 85730; 93005

== ENCOUNTER 2024-03-20 10:51 | Outpatient (CLI) | payer MEDICARE | END 2024-03-20 10:52 | disposition home or self-care (01) | LOC: BICMAMMO 10:51 | PROVIDERS: ATTEND Family Medicine | DX: Z12.31 Encounter for screening mammogram for malignant neoplasm of breast (principal); Z80.3 Family history of malignant neoplasm of breast; Z91.89 Other specified personal risk factors, not elsewhere classified | CPT/HCPCS: 77063; 77067 ==